=== PATIENT | male | born 1960 | race Caucasian/White ===

== ENCOUNTER 2017-01-18 15:53 | Emergency (ER) | payer OTHER ==
[2017-01-18 16:06] VITALS: PULSE 72; RESP 18; TEMP 97.9
--- NOTE | 2017-01-18 16:35 | ED ---
General Adult HPI - General Chief complaint: Extremity Injury, Upper Stated complaint: dislocated shoulder Time Seen by Provider: 01/18/17 16:00 Source: patient, RN notes reviewed Mode of arrival: ambulatory Limitations: no limitations - History of Present Illness Initial comments: This is a 56-year-old male presents emergency pertinent stating he went to an urgent care facility after he hurt his shoulder on Sunday from a fall on outstretched arm and he was told that he had dislocated shoulder and he was to come to the emergency department immediately. Patient denies any clavicle pain. Patient denies any chest pain. Patient denies any back pain. Patient denies any scabs the pain. Patient denies any elbow wrist or hand pain. - Related Data Home Medications Medication Instructions Recorded Confirmed Synthroid Unknown Dose 1 tab PO DAILY 01/18/17 01/18/17 Zoloft Unknown Dose 1 tab PO HS 01/18/17 01/18/17 Previous Rx's Medication Instructions Recorded Hydrocodone/Acetaminophen [[place] 1 each PO Q4HR PRN #20 tab 01/18/17 5-325] Ibuprofen [Motrin] 600 mg PO Q6HR PRN #20 tab 01/18/17 Allergies Allergy/AdvReac Type Severity Reaction Status Date / Time No Known Allergies Allergy Verified 01/18/17 16:39 Review of Systems ROS Statement: Those systems with pertinent positive or pertinent negative responses have been documented in the HPI. ROS Other: All systems not noted in ROS Statement are negative. Past Medical History Past Medical History: Thyroid Disorder Additional Past Medical History / Comment(s): diverticulitis History of Any Multi-Drug Resistant Organisms: None Reported Past Surgical History: Cholecystectomy Past Psychological History: No Psychological Hx Reported Smoking Status: Former smoker Past Alcohol Use History: Occasional Past Drug Use History: None Reported General Exam - General Exam Comments Initial Comments: GENERAL Patient is well-developed and well-nourished. Patient is in mild distress. EYES Patient's pupils are equal and round. Extraocular motion is intact SKIN Unremarkable NEURO The patient is alert and oriented 3 PYSCH Patient has normal interpersonal interactions. MUSCULOSKELETAL Patient's left shoulder is tender on the lateral aspect of the humeral head. Patient seems to have full range of motion but it causes pain. Limitations: no limitations Course Vital Signs 01/18/17 15:59 Temperature 97.9 F Pulse Rate 72 Respiratory 18 Rate Blood Pressure 140/79 O2 Sat by Pulse 99 Oximetry Medical Decision Making - Medical Decision Making Shoulder shows a greater tuberosity fracture that is not displaced. Disposition Clinical Impression: Proximal humerus fracture Disposition: HOME SELF-CARE Condition: Good Instructions: Proximal Humerus Fracture (ED) Additional Instructions: Patient should follow-up with orthopedic surgery. Prescriptions: Hydrocodone/Acetaminophen [[place] 5-325] 1 each PO Q4HR PRN #20 tab PRN Reason: Pain Ibuprofen [Motrin] 600 mg PO Q6HR PRN #20 tab PRN Reason: For pain Referrals: Nonstaff,Physician [Primary Care Provider] - 1-2 days Time of Disposition: 16:51
--- NOTE | 2017-01-18 16:44 | XR ---
EXAMINATION TYPE: XR shoulder complete RT DATE OF EXAM: 01/18/2017 COMPARISON: Outside radiographs same day HISTORY: 56 year-old male right shoulder pain after fall a couple days ago. TECHNIQUE: 3 views FINDINGS: AC joint appears intact. Subacromial space is preserved. There is a very subtle nondisplaced fracture of the greater tuberosity demonstrated. No dislocation at the glenohumeral joint. Visualized right h emithorax is clear. IMPRESSION: 1. Nondisplaced greater tuberosity fracture. Careful follow-up recommended to ensure that the fragmen t does not displace as this is a functional rotator cuff tear. 2. No shoulder dislocation.
[2017-01-18] MEDS ORDERED: KETOROLAC 60 MG/2 ML VIAL IM STA (16:48)
[2017-01-18] MEDS ORDERED: HYDROcodone/APAP 7.5-325MG 1 EACH TAB PO ONE (16:52)
[2017-01-18 17:08] VITALS: BP 133/73
== END 2017-01-18 17:14 | disposition home or self-care (01) ==
LOC: SUPCPDRO 15:53 → EC 15:53
DX: S42.254A Nondisplaced fracture of greater tuberosity of right humerus, initial encounter for closed fracture (principal); E07.9 Disorder of thyroid, unspecified; Z87.891 Personal history of nicotine dependence; Z79.899 Other long term (current) drug therapy; W19.XXXA Unspecified fall, initial encounter
CPT/HCPCS: 73030; 99283; 96372; J1885